=== PATIENT | female | born 1955 ===

== ENCOUNTER 2017-11-13 12:56 | Emergency (ER) | payer SELFPAY ==
[2017-11-13 13:07] VITALS: BP 122/77; PULSE 84; RESP 18; TEMP 98.6; O2SAT 98
--- NOTE | 2017-11-13 13:42 | C.PDOC ---
History Of Present Illness 62 y/o female c/o left upper arm pain and bruise since yesterday after a window fell and hit her arm. pt has been taking ibuprofen with moderate relief of pain. pt concerned about bruising. no other injuries. Time Seen by Provider: 11/13/17 13:33 Chief Complaint (Nursing): Upper Extremity Problem/Injury History Per: Patient History/Exam Limitations: no limitations Onset/Duration Of Symptoms: Days (1) Current Symptoms Are (Timing): Still Present Quality: "Pain" Severity: Moderate Exacerbating Factor(s): Strenuous Use Of Affected Area, Movement Past Medical History Reviewed: Historical Data, Nursing Documentation, Vital Signs Vital Signs: Last Vital Signs Temp 98.6 F 11/13/17 13:04 Pulse 84 11/13/17 13:04 Resp 18 11/13/17 13:04 BP 122/77 11/13/17 13:04 Pulse Ox 98 11/13/17 13:45 - Medical History PMH: HTN Family History: States: Unknown Family Hx - Social History Hx Alcohol Use: No Hx Substance Use: No Review Of Systems Constitutional: Negative for: Fever, Chills Cardiovascular: Negative for: Chest Pain Gastrointestinal: Negative for: Abdominal Pain Musculoskeletal: Positive for: Arm Pain Skin: Positive for: Bruising (left yupper arm) Neurological: Negative for: Weakness, Numbness Physical Exam - Physical Exam Appears: Non-toxic, No Acute Distress Skin: Warm, Dry, Ecchymosis (7 cm tall x 5 cm wide area ecchymosis with mild swelling to left upper lateral arm. tender to palpation.) Head: Atraumatic, Normacephalic Neck: No Midline Cervical Tenderness, Supple Extremity: Normal ROM, Tenderness (left upper arm at site of bruise, compartment soft. no bony tenderness. from at shoulder and elbow.) Pulses: Left Radial: Normal, Right Radial: Normal Neurological/Psych: Oriented x3, Normal Speech, Normal Cognition ED Course And Treatment O2 Sat by Pulse Oximetry: 98 Medical Decision Making Medical Decision Making: pt with large bruise to left upper arm s/p hit with window; from arm, no bony tenderness. low suspicion for humeral fx. cold compress, nsaids. pmd f/u Disposition Counseled Patient/Family Regarding: Diagnosis, Need For Followup - Disposition Disposition: HOME/ ROUTINE Disposition Time: 13:40 Condition: GOOD Additional Instructions: Aplique compresas fras (sobre austin toalla chandni o un minerva) 4 veces al da ryland 20 minutos a la vez para ayudar a reducir la hinchazn. Terral Tylenol o Motrin para el dolor si es necesario. Evite el uso intensivo del brazo vern en los prximos irizarry. Chelita un seguimiento con galvan mdico en unos irizarry. Vuelva a la smiley de emergencias si el brazo vern vern se vuelve ms hinchado, con sensacin de rigidez o cualquier entumecimiento u hormigueo en el brazo vern. Please apply cold compresses (over a thin towel or cloth) 4 times a day for 20 minutes at a time to help reduce swelling. Take Tylenol or Motrin for pain if needed. Avoid heavy use of left arm in the next few days. Follow up with your doctor in a few days. Return to ER if left upper arm becomes more swollen, tight feeling or any numbness or tingling in left arm. Instructions: Contusion (DC) Forms: Gen Discharge Inst Bol[place]ian, [employer] (Bolivian), Work Excuse Print Language: MARTINIQUAIS - Clinical Impression Clinical Impression: Contusion of left upper arm, initial encounter
== END 2017-11-13 13:51 | disposition home or self-care (01) ==
LOC: C.ER 12:56
DX: S40.022A Contusion of left upper arm, initial encounter (principal); W22.8XXA Striking against or struck by other objects, initial encounter; I10 Essential (primary) hypertension